=== PATIENT | female | born 1935 | race Caucasian/White ===

== ENCOUNTER 2016-09-23 14:18 | Emergency (ER) | payer MEDICARE, OTHER ==
[2016-09-23] MEDS ORDERED: LORazepam 2 MG/ML SYRINGE IVP STA (14:41)
[2016-09-23] MEDS ORDERED: LORazepam 2 MG/ML SYRINGE ONE (14:57)
[2016-09-23] MEDS ORDERED: GADOBUTROL 7.5 MMOL/7.5 ML VIAL IVP ONE (15:48)
== END 2016-09-23 18:53 | disposition home or self-care (01) ==
DX: I63.412 Cerebral infarction due to embolism of left middle cerebral artery (principal); D32.0 Benign neoplasm of cerebral meninges; I10 Essential (primary) hypertension; I25.10 Atherosclerotic heart disease of native coronary artery without angina pectoris; Z95.5 Presence of coronary angioplasty implant and graft
CPT/HCPCS: 36415; 70553; 80053; 83690; 85025; 93005; 93880; 96374; 99284; 99285; A9585; J2060

== ENCOUNTER 2016-09-28 | Outpatient (CLI) | payer MEDICARE, OTHER | END 2016-09-28 08:39 | disposition short-term general hospital (02) | CPT/HCPCS: A0170; A0425; A0427 ==

== ENCOUNTER 2016-11-12 08:59 | Outpatient (CLI) | payer MEDICARE, OTHER | END 2016-11-12 09:00 | disposition home or self-care (01) | DX: E78.5 Hyperlipidemia, unspecified (principal); I10 Essential (primary) hypertension ==